=== PATIENT | male | born 1985 | race Caucasian/White ===

== ENCOUNTER 2016-10-03 17:30 | Emergency (ER) | payer OTHER ==
[~2016-10-03] VITALS: Ht 162.6 cm; Wt 66.4 kg
[2016-10-03] MEDS ORDERED: NARCAN4 MG NS (21:38)
[2016-10-03 22:18] VITALS: BP 107/65
== END 2016-10-03 22:21 | disposition home or self-care (01) ==
LOC: EME 17:30
DX: T40.2X1A Poisoning by other opioids, accidental (unintentional), initial encounter (principal); F17.200 Nicotine dependence, unspecified, uncomplicated
CPT/HCPCS: 93005; 99281; 99285; J2310

== ENCOUNTER 2017-03-19 22:15 | Emergency (ER) | payer OTHER ==
[~2017-03-19] VITALS: Ht 162.6 cm; Wt 55.6 kg
[~2017-03-19 22:15] MED LIST: NARCAN4 MG NS
[2017-03-19 22:25] VITALS: BP 123/89
== END 2017-03-19 23:53 | disposition left against medical advice (07) ==
LOC: EME 22:15
DX: R07.9 Chest pain, unspecified (principal); Z53.21 Procedure and treatment not carried out due to patient leaving prior to being seen by health care provider
CPT/HCPCS: 71020; 80048; 84484; 85027; 93005

== ENCOUNTER 2017-09-05 12:43 | Emergency (ER) | payer OTHER ==
[~2017-09-05] VITALS: Ht 162.6 cm; Wt 63.6 kg
[2017-09-05] MEDS ORDERED: ULTRAM50 MG PO (14:32)
[2017-09-05] MEDS ORDERED: KEFLEX500 MG PO (14:32)
[2017-09-05] MEDS ORDERED: BACTRIM,SEPT1 TABLET PO (14:32)
[2017-09-05] MEDS ORDERED: SILVADENE20 GM TP (14:33)
[2017-09-05 16:57] VITALS: BP 114/84
== END 2017-09-05 16:57 | disposition home or self-care (01) ==
LOC: EME 12:43
PROC: 3E0234Z Introduction of Serum, Toxoid and Vaccine into Muscle, Percutaneous Approach (ICD-10-PCS; principal; 2017-09-05)
PROC: 2W2EX4Z Dressing of Right Hand using Bandage (ICD-10-PCS; principal; 2017-09-05)
PROC: 2W2JX4Z Dressing of Right Finger using Bandage (ICD-10-PCS; principal; 2017-09-05)
PROC: 2W2 Placement, Anatomical Regions, Dressing (ICD-10-PCS; principal; 2017-09-05)
DX: T23.251A Burn of second degree of right palm, initial encounter (principal); T23.231A Burn of second degree of multiple right fingers (nail), not including thumb, initial encounter; T25.231A Burn of second degree of right toe(s) (nail), initial encounter; T31.0 Burns involving less than 10% of body surface; X08.8XXA Exposure to other specified smoke, fire and flames, initial encounter; Z59.0 Homelessness; Z23 Encounter for immunization; F17.200 Nicotine dependence, unspecified, uncomplicated
CPT/HCPCS: 99281; 99285; J2270; J7030

== ENCOUNTER 2018-01-27 19:56 | Emergency (ER) | payer OTHER ==
[~2018-01-27] VITALS: Ht 162.6 cm; Wt 61.9 kg
[~2018-01-27 19:56] MED LIST changes: +BACTRIM,SEPT1 TABLET PO; +KEFLEX500 MG PO; +SILVADENE20 GM TP; +ULTRAM50 MG PO
[2018-01-27] MEDS ORDERED: MOTRIN800 MG PO (22:47)
[2018-01-27] MEDS ORDERED: TESSALON PERLE100 MG PO (22:47)
[2018-01-27] MEDS ORDERED: ZITHROMAX250 MG PO (22:47)
[2018-01-27 23:30] VITALS: BP 130/97
== END 2018-01-27 23:32 | disposition home or self-care (01) ==
LOC: EME 19:56 → EXP 19:56
DX: J02.0 Streptococcal pharyngitis (principal); J18.0 Bronchopneumonia, unspecified organism; F17.200 Nicotine dependence, unspecified, uncomplicated
CPT/HCPCS: 87651 90; 93005; 99281; 99284; J0561; J1100